=== PATIENT | female | born 1950 | race Caucasian/White ===

== ENCOUNTER → 2020-08-10 | Outpatient (CLI) | payer BC ==
[~2020-08-10] MED LIST: ATOR10TA9 PO; EZET10TA70 PO; GLYB5TAB3 PO; LISI2.5T PO; METF1000 PO; NEBI2.5T2 PO; SITA100T PO; UBID50TA3 PO; WARF3TAB52 PO
[2020-08-10 12:49] LABS: BASOPHILS % (AUTO) 1 % (0-1); EOSINOPHILS % (AUTO) 1 % (1-7); LYMPHOCYTES % (AUTO) 24 % (22-44); MEAN CORPUSCULAR HEMOGLOBIN 31.9 pg (27.0-34.8); MEAN CORPUSCULAR HGB CONC 33.4 g/dL (32.4-35.8); MEAN PLATELET VOLUME 7.8 fL (7.4-10.4); MONOCYTES % (AUTO) 7 % (2-9); NEUTROPHILS % (AUTO) 67 % (42-75); PLATELET COUNT 297 x10^3/uL (130-400); RED CELL DISTRIBUTION WIDTH 13.8 % (9.6-15.2)
[2020-08-10 12:55] LABS: PROTHROMBIN TIME 10.6 Seconds (9.6-11.5)
[2020-08-10 12:56] LABS: ALANINE AMINOTRANSFERASE 24 U/L (12-78); ANION GAP 7 mmol/L (5-15); CALCIUM 9.1 mg/dL (8.5-10.1); CHLORIDE 106 mmol/L (98-107)
[2020-08-10 12:58] LABS: ALKALINE PHOSPHATASE 82 U/L (45-117); BILIRUBIN,TOTAL 0.7 mg/dL (0.2-1.0); CREATININE 1.03 mg/dL (0.55-1.02); MD NO; TOTAL PROTEIN 7.6 g/dL (6.4-8.2)
== END | disposition home or self-care (01) ==
LOC: STAR 11:25
PROVIDERS: ATTEND Orthopaedic Surgery
DX: Z01.812 Encounter for preprocedural laboratory examination (principal); Z20.828 Contact with and (suspected) exposure to other viral communicable diseases; M16.11 Unilateral primary osteoarthritis, right hip; R94.31 Abnormal electrocardiogram [ECG] [EKG]; Z79.01 Long term (current) use of anticoagulants
CPT/HCPCS: 36415; 80053; 83036; 85025; 85610; 85730; 87081; 87635; 93005